=== PATIENT | male | born 1950 | race African-American/Black ===

== ENCOUNTER 2021-11-30 01:38 | Observation (INO) | payer MEDICARE ==
[2021-11-30 02:11] VITALS: BMI 26.5
[2021-11-30] MEDS ORDERED: Nitroglycerin 0.4 MG TAB (25 Tab Bottle) SL PRN (02:51)
[2021-11-30] MEDS ORDERED: Dextrose 5% in Water 1,000 ML IV PRN (02:57)
[2021-11-30] MEDS ORDERED: Dextrose 50% Abboject 50 ML SYRINGE SLOW IVP PRN (02:57)
[2021-11-30] MEDS ORDERED: HumaLOG 300 UNITS/3 ML VIAL SC PRN (02:57)
[2021-11-30] MEDS: Nitroglycerin 2% Ointment 1 INCH/1 GM Packet TOP SCH ×2 (03:10→13:32)
[2021-11-30 04:20] LABS: #Eosinphils 0.2 10x3/uL (0.0-0.5); #Monocytes 0.8 10x3/uL (0.0-1.1); #Neutrophils 6.5 10x3/uL (1.5-8.4); %Basophils 0.4 % (0.0-2.0); %Eosinophils 1.9 % (0.0-6.0); %Lymphocytes 29.6 % (18.0-47.0); %Monocytes 7.6 % (0.0-10.0); %Neutrophils 60.2 % (40.0-75.0); Hemoglobin 12.4 g/dL (13.5-17.5); Mean Corpuscular HGB CONC 32.7 g/dL (32.0-36.0); Mean Corpuscular Hemoglobin 28.6 pg (27.0-33.0); Mean Corpuscular Volume 87.5 fl (81.2-95.1); Mean Platelet Volume 9.8 fl (7.4-10.4); Platelet Count 241 10x3/uL (150-450); RBC Distribution Width 13.6 % (11.5-14.5); Red Blood Cell (RBC) Count 4.33 10x6/uL (4.32-5.72); White Blood Cell (WBC) Count 10.8 10x3/uL (3.5-10.5)
[2021-11-30 04:37] LABS: Anion Gap 11 mmol/L (10-20); BUN (Urea Nitrogen) 12 mg/dL (8.4-25.7); Calc. Creatinine Clearance 75 mL/min (70-130); Calcium 8.9 mg/dL (7.8-10.44); Carbon Dioxide 28 mmol/L (23-31); Cardiac Risk 2.9 (Less than 4.5); Chloride 102 mmol/L (98-107); Cholesterol 101 mg/dl (< 200 Desired); Glucose 93 mg/dL (80-115); HDL Cholesterol 35 mg/dL (>60 Neg Risk); LDL Cholesterol, Calculated 54 mg/dL; Magnesium 1.8 mg/dL (1.6-2.6); Potassium 3.6 mmol/L (3.5-5.1); Sodium 137 mmol/L (136-145); Triglycerides 58 mg/dL (Less than 150)
[2021-11-30 04:41] LABS: Troponin I Less than 0.010 ng/mL (< 0.028)
[2021-11-30 06:43] LABS: Troponin I Less than 0.010 ng/mL (< 0.028)
[2021-11-30] MEDS ORDERED: Lisinopril 10 MG TAB PO SCH (09:00)
[2021-11-30] MEDS ORDERED: Enoxaparin Sodium 40 MG/0.4 ML SYRINGE SC SCH (09:00)
[2021-11-30] MEDS ORDERED: Aspirin Chewable 81 MG TAB PO SCH (09:00)
[2021-11-30 13:02] LABS: Hemoglobin A1c 6.7 % (4.0-6.0)
[2021-11-30 16:49] LABS: SARS-CoV-2 PCR by NAA Not Detected (NotDetected)
[2021-11-30 17:06] VITALS: BP 116/65; TEMP 98
[2021-11-30] MEDS ORDERED: Atorvastatin Calcium 40 MG TAB PO SCH (21:00)
== END 2021-11-30 19:27 | disposition home or self-care (01) ==
LOC: CSHTELE 01:38
PROVIDERS: ADMIT Family Medicine; ATTEND Physician Assistant
DX: R07.2 Precordial pain (principal); N63.0 Unspecified lump in unspecified breast; E11.9 Type 2 diabetes mellitus without complications; I10 Essential (primary) hypertension; E78.5 Hyperlipidemia, unspecified; Z79.899 Other long term (current) drug therapy; Z79.84 Long term (current) use of oral hypoglycemic drugs; Z79.82 Long term (current) use of aspirin; Z85.3 Personal history of malignant neoplasm of breast; Z86.73 Personal history of transient ischemic attack (TIA), and cerebral infarction without residual deficits; Z20.822 Contact with and (suspected) exposure to COVID-19
CPT/HCPCS: 80048; 80061; 82962; 83036; 83735; 84484 ×2; 85025; 93005; 93306; 96372; G0378; U0003; U0005; 36416; 93010; J1650